=== PATIENT | female | born 1970 | race Caucasian/White ===

== ENCOUNTER → 2016-06-05 | Outpatient (CLI) | payer BC ==
[2016-06-05 14:54] LABS: BASO % 0.2 %; BASO ABS # 0.01 K/uL (0-0.2); COMPLETE YES; EOS % 1.6 %; HEMATOCRIT 38.8 % (37-47); IG% 0.2 %; LYMPH % 28.5 %; LYMPH ABS # 1.38 K/uL (1.2-3.4); MEAN CELL VOLUME 85.7 fL (80-100); MEAN CORPUSCULAR HEMOGLOBIN 29.8 pg (25-34); MEAN CORPUSCULAR HGB CONC 34.8 g/dl (32-36); NEUT % 62.5 %; PLATELET COUNT 255 K/uL (130-400); RED BLOOD COUNT 4.53 M/uL (4.2-5.4); WHITE BLOOD COUNT 4.85 K/uL (4.8-10.8)
[2016-06-05 15:03] LABS: ALT/SGPT 19 U/L (12-78); BLOOD UREA NITROGEN 24 mg/dl (7-18); BUN/CREATININE RATIO 19.9 (10-20); CALCIUM 8.9 mg/dl (8.5-10.1); CARBON DIOXIDE 27 mmol/L (21-32); CHLORIDE 110 mmol/L (98-107); CHOLESTEROL 193 mg/dl (0-200); GLUCOSE 73 mg/dl (70-99); POTASSIUM 3.8 mmol/L (3.5-5.1); SODIUM 145 mmol/L (136-145)
[2016-06-05 15:14] LABS: ALB/GLOB RATIO 0.9 (0.9-2); ALKALINE PHOSPHATASE 63 U/L (45-117); AST/SGOT 16 U/L (15-37); CHOLESTEROL/HDL RATIO 2.7; HDL CHOLESTEROL 72 mg/dl; TRIGLYCERIDES 71 mg/dl (0-150); VERY LOW DENSITY LIPOPROT CALC 14 mg/dl
[2016-06-06 06:29] LABS: ESTIMATED AVERAGE GLUCOSE 103 mg/dl; HA1C FLAG Normal (Normal)
== END | disposition home or self-care (01) ==
LOC: C.LABSPEC 14:19
PROVIDERS: ATTEND Internal Medicine
DX: N18.9 Chronic kidney disease, unspecified (principal); E28.2 Polycystic ovarian syndrome; E66.09 Other obesity due to excess calories; R53.83 Other fatigue; E88.81 Metabolic syndrome and other insulin resistance

== ENCOUNTER → 2016-10-02 | Outpatient (CLI) | payer BC ==
--- NOTE | 2016-10-03 13:54 | MAMMOGRAPHY REPORT ---
BILATERAL DIGITAL SCREENING MAMMOGRAM TOMOSYNTHESIS WITH CAD: 10/02/2016 CLINICAL HISTORY: Routine screening. Patient has no complaints. TECHNIQUE: Breast tomosynthesis in addition to standard 2D mammography was performed. Current study was also evaluated with a Computer Aided Detection (CAD) system. COMPARISON: Comparison is made to exams dated: 10/02/2015 mammogram, 09/27/2014 mammogram, 09/26/2013 mamm ogram, 09/24/2012 mammogram, 09/24/2011 mammogram, and 11/19/2009 mammogram - [facility] er. BREAST COMPOSITION: The tissue of both breasts is almost entirely fatty. FINDINGS: No suspicious masses, calcifications, or areas of architectural distortion are noted in ei ther breast. There has been no significant interval change compared to prior exams. IMPRESSION: ACR BI-RADS CATEGORY 1: NEGATIVE There is no mammographic evidence of malignancy. A 1 year screening mammogram is recommended. The pa tient will receive written notification of the results. Approximately 10% of breast cancers are not detected with mammography. A negative mammographic report should not delay biopsy if a clinically suggestive mass is present. Aundrea Merchant M.D. /:10/02/2016 16:27:46 Metalworking Instructor: Gillian MARISCAL(Reginaldo)(Dean), [facility] letter sent: Normal 1/2 BI-RADS Code: ACR BI-RADS Category 1: Negative
== END | disposition home or self-care (01) ==
LOC: C.MAMM 15:40
PROVIDERS: ATTEND Internal Medicine
DX: Z12.31 Encounter for screening mammogram for malignant neoplasm of breast (principal)

== ENCOUNTER → 2016-10-03 | Outpatient (CLI) | payer BC ==
[2016-10-03 18:22] LABS: URINE APPEARANCE CLEAR (CLEAR); URINE BILIRUBIN NEG (NEG); URINE COLOR YELLOW; URINE EPITHELIAL CELL AUTO >30 /lpf (0-5); URINE NITRITE NEG (NEG); URINE SPECIFIC GRAVITY 1.022 (1.000-1.030); UROBILINOGEN NEG (NEG)
[2016-10-03 18:27] LABS: MANUAL MICROSCOPIC REQUIRED? NO; REVIEW REQ? NO
== END | disposition home or self-care (01) ==
LOC: C.LAB 17:27
PROVIDERS: ATTEND Internal Medicine
DX: N39.0 Urinary tract infection, site not specified (principal)